=== PATIENT | male | born 1970 | race Hispanic/Latino ===

== ENCOUNTER → 2017-11-24 | Outpatient (CLI) | payer OTHER | END | disposition home or self-care (01) | LOC: OIH 13:38 | PROVIDERS: ATTEND Internal Medicine Cardiovascular Disease | DX: Z13.6 Encounter for screening for cardiovascular disorders (principal) | CPT/HCPCS: 75571 ==

== ENCOUNTER 2024-07-27 15:52 | Emergency (ER) | payer BC ==
[~2024-07-27] VITALS: Ht 170.2 cm; Wt 104.3 kg
[~2024-07-27 15:52] MED LIST: AEC81 PO; AMLO-258 PO; ATOR10TA69 PO; ICOS1CAP PO; LOSA100T59 PO; PSYL1PAC11 PO
[2024-07-27 16:03] VITALS: BP 164/106; PULSE 110; RESP 18; TEMP 99; O2SAT 97
--- NOTE | 2024-07-27 16:11 | ERN ---
ED Note History of Present Illness Stated Complaint: COUGH, CONGESTION Chief Complaint: Cough Time Seen by MD: 16:02 Dictation: PATIENT IS A 54-YEAR-OLD MALE WITH FLU-LIKE SYMPTOMS TO INCLUDE BODY ACHES, CHILLS, PRODUCTIVE COUGH WITH PANG PHLEGM FOR THE LAST 5-6 DAYS. HE DENIES NAUSEA VOMITING NO SHORTNESS A BREATH NO CHEST PAIN NO BACK PAIN. NO LOSS OF TASTE OR SMELL STATES HE HAS A DOCTOR IN [facility] HOWEVER HAS NOT BEEN TO SEE HIM. Allergies: Coded Allergies: No Allergy Information Available (Verified Allergy, Unknown, 08/15/19) No Known Drug Allergies (Unverified Allergy, Unknown, 08/16/19) Home Meds Reported Medications Psyllium Husk (with Sugar) (Metamucil Packet) 3.4 Gm Powd.pack, 3.4 GM PO DAILY 08/16/19 Icosapent Ethyl (Vascepa) 1 Gm Capsule, 2 GM PO BID, CAP 08/15/19 Losartan Potassium (Losartan Potassium) 100 Mg Tablet, 100 MG PO DAILY, TAB 08/15/19 Amlodipine Besylate (Amlodipine Besylate) 10 Mg Tablet, 10 MG PO DAILY, TAB 08/15/19 Atorvastatin Calcium (Atorvastatin Calcium) 10 Mg Tablet, 10 MG PO HS, TAB 08/15/19 Aspirin (ASPIRIN 81 MG ECTAB) 81 Mg Ectab, 81 MG PO DAILY, TAB.EC 08/15/19 Past Medical History Past Medical History: High Cholesterol, Hypertension Surgical History: Appendectomy, Cholecystectomy, Other Surgical History Other: BLOOD VESSEL BURST IN NOSE RN Note Reviewed/Agreed w/PFSH: Yes Review of System Dictation CONSTITUTIONAL: NEGATIVE EXCEPT FOR HPI CHILLS HEAD/FACE: NEGATIVE EXCEPT FOR HPI EENT: NEGATIVE EXCEPT FOR HPI RESPIRATORY: NEGATIVE EXCEPT FOR HPI PRODUCTIVE COUGH WITH GREEN PHLEGM GASTROINTESTINAL/ABDOMINAL: NEGATIVE EXCEPT FOR HPI GENITOURINARY: NEGATIVE EXCEPT FOR HPI MUSCULOSKELETAL: NEGATIVE EXCEPT FOR HPI MALAISE INTEGUMENTARY: NEGATIVE EXCEPT FOR HPI NEUROLOGICAL/PSYCH: NEGATIVE EXCEPT FOR HPI HEMATOLOGIC/LYMPHATIC: NEGATIVE EXCEPT FOR HPI ALL SYSTEMS NEGATIVE, EXCEPT NOTED ABOVE. 13 POINT REVIEW OF SYSTEMS ASSESSED AND ALL NEGATIVE EXCEPT FOR ABOVE. Initial Vital Sign VS Vital Signs Date Time Temp Pulse Resp B/P (MAP) Pulse Ox O2 Delivery O2 Flow Rate FiO2 07/27/24 15:55 99.0 110 18 164/106 97 Room Air 0 07/27/24 16:03 21 Physical Exam Dictation VITAL SIGNS REVIEWED GENERAL APPEARANCE: ALERT, ORIENTED X 3, MILD ACUTE DISTRESS, WELL DEVELOPED, NOURISHED. HEAD AND FACE: NON-TRAUMATIC. EYES: PERRL, PINK CONJUNCTIVAS, EYELID NO TRAUMA, ANTERIOR CHAMBER WITH ARCUS SENILIS. EARS: PINNAS INTACT AND NO SIGNS OF TRAUMA OR ERYTHEMA EAR CANALS CLEAR AND NO DISCHARGE TM NO ERYTHEMA NOSE: CLEAR DISCHARGE, NO BLEEDING. OROPHARYNX: MOUTH NORMAL, TONGUE PINK, PHARYNX CLEAR,NO ERYTHEMA, TONSILS NO EXUDATES, NO ABSCESSES NOTED, MUCOUS MEMBRANE MOIST NECK: SUPPLE, NON-TENDER, NO THYROMEGALY, NO MASSES, NO JVD, NO BRUITS BREAST:DEFERRED CHEST:NO TENDERNESS, NO CREPITUS, NO PARADOXICAL MOVEMENT, NO RETRACTIONS LUNGS:CLEAR, WELL-VENTILATED, SYMMETRIC, NO RALES, NO WHEEZING, NO RHONCHI, NO STRIDOR, GOOD BREATH SOUNDS BILATERALLY HEART: REGULAR RATE, REGULAR RHYTHM, NO MURMUR, NO GALLOPS VASCULAR: NO PERIPHERAL EDEMA, ABDOMEN: SOFT, POSITIVE BOWEL SOUNDS, NONDISTENDED, NO GUARDING, NONTENDER, NO REBOUND, NO MASSES NO HEPATOMEGALY, NO SPLENOMEGALY, NO HAHN'S SIGN, NO HERNIAS. RECTAL: DEFERRED GENITAL: DEFERRED NEUROLOGICAL: NORMAL SPEECH, MOTOR FUNCTION INTACT, SENSORY FUNCTION INTACT MUSCULOSKELETAL: NECK NONTENDER, FULL RANGE OF MOTION, BACK NONTENDER, FULL RANGE OF MOTION, EXTREMITIES: NONTENDER, FULL RANGE OF MOTION SKIN: COLOR PINK, DRY, NO TURGOR, NO RASH, NO LACERATIONS, NO ABRASIONS, NO CONTUSIONS. LYMPHATIC: DEFERRED Results (Laboratory/Radiology) Laboratory/Radiology CHEST 1VW REASON: COUGH COMPARISON: 08/15/2019 FINDINGS: Single view of the chest was obtained. Lungs are clear. Heart size is normal. There is no pulmonary vascular congestion. Mediastinum and bony thorax appear unremarkable. IMPRESSION: 1. Normal single view chest x-ray. Labs Reviewed?: Yes ED Course ED Course Orders Procedure Category Date Status Time Covid Rna Naat LAB 07/27/24 Logged 15:58 Influenza Type A & B, LAB 07/27/24 Logged Rapid 15:58 Rapid (Group A Strep) LAB 07/27/24 Logged 15:58 Chest 1vw RAD 07/27/24 Resulted 15:58 Dexamethasone 4mg/Ml PHA 07/27/24 Complete 1ml Vial (Dexametha 16:30 Ibuprofen 800 Mg Tab PHA 07/27/24 Complete (Motrin) 16:30 Current Medications Medications (Trade) Dose Ordered Sig/Abbie Route PRN Reason Start Time Stop Time Status Last Admin Dose Admin Dexamethasone Sodium Phosphate (dexaMETHasone 4MG/ML 1ML VIAL) 8 mg ONCE ONCE IM 07/27/24 16:30 07/27/24 16:31 DC 07/27/24 16:25 Ibuprofen (moTRIN) 800 mg ONCE ONCE PO 07/27/24 16:30 07/27/24 16:31 DC 07/27/24 16:25 Vital Signs Date Time Temp Pulse Resp B/P (MAP) Pulse Ox O2 Delivery O2 Flow Rate FiO2 07/27/24 16:03 99.0 110 18 164/106 97 Room Air* 0 21 07/27/24 15:55 99.0 110 18 164/106 97 Room Air 0 1940, there is a lab mix up and swabs were not performed. States patient states he feels better after treatment, chest x-ray negative we will discharged home with a URI and cough Medical Decision Making MDM Medical decision-making based on swabs for flu COVID and strep and chest x-ray. Swabs not perform secondary to human error And not run chest x-ray clear DX & DISP Disposition: Discharge Departure Impression: Primary Impression: Viral URI with cough Condition: Stable Scripts Albuterol Sulfate (Ventolin Hfa/Proventil Hfa/Proair Hfa) 90 Mcg Puff 2 PUFF IH Q4H for WHEEZING, #1 INHALER 0 Refills Prov: LIZABETH SMITH VISUAL DISPLAY MANAGER 07/27/24 Referrals: KRIS BLISS (PCP) Time of Disposition: 19:39 I have reviewed the case, and I agree with, Diagnosis and Plan LIZABETH SMITH VISUAL DISPLAY MANAGER Jul 27, 2024 16:11
[2024-07-27] MEDS: ibuPROFEN 800 MG TAB PO ONE (16:25)
[2024-07-27] MEDS: dexaMETHasone SOD PHOSPHATE 4 MG/ML 1ML VIAL IM ONE (16:25)
--- NOTE | 2024-07-27 16:29 | HMCIMG ---
CHEST 1VW REASON: COUGH COMPARISON: 08/15/2019 FINDINGS: Single view of the chest was obtained. Lungs are clear. Heart size is normal. There is no pulmonary vascular congestion. Mediastinum and bony thorax appear unremarkable. IMPRESSION: 1. Normal single view chest x-ray.
[2024-07-27] MEDS ORDERED: ALBUHFA IH (19:40)
== END 2024-07-27 19:45 | disposition home or self-care (01) ==
LOC: EDH 15:52
DX: J06.9 Acute upper respiratory infection, unspecified (principal); R05.9 Cough, unspecified; B97.89 Other viral agents as the cause of diseases classified elsewhere; E78.00 Pure hypercholesterolemia, unspecified; I10 Essential (primary) hypertension; Z79.82 Long term (current) use of aspirin; Z79.899 Other long term (current) drug therapy; Z90.49 Acquired absence of other specified parts of digestive tract
CPT/HCPCS: 99284; 71045; 96372; J1100